=== PATIENT | male | born 2000 | race African-American/Black ===

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

== ENCOUNTER 2023-04-04 11:38 | Emergency (ER) | payer SELFPAY ==
--- OUTSIDE RECORDS SUMMARY | 2023-04-04 11:42 | XMS REPORT | Continuity of Care Document ---
:2002 Author Organization [facility] t Address [address] [facility] [address] [place] [address] Care Team Providers Name Role Phone PCP, PATIENT DOES NOT HAVE A Primary Care Physician Unavaila ble BURNHAM, SON Attending Clinician Unavailable BURNHAM, SON Attending Clinician [phone] MARTIN VALLE Attending Clinician Unavailable Doctor Unassigned, [place] Attending Clinician Unavailable Gloria Low RN Attending Clinician Unavailable Only, Ang Db Test Attending Clinician Unavailable Martin Valle MD Attending Clinician CONSTANTINO WILLINGHAM Attending Clinician Unavailable CONSTANTINO WILLINGHAM Attending Clinician [phone] NURSE, NURSE Attending Clinician Unavailable GABI MONTANEZ Attending Clinician Unavailable GABI MONTANEZ Attending Clinician [phone] Buddy Mary Attending Clinician Unavailable Piotr Madrigal MD Attending Clinician [facility], PROVIDER Attending Clinician Unavailable NICHO RICKS Attending Clinician Unavailable HECTOR BURROWS Attending Clinician [phone] NICHO RICKS Admitting Clinician Unavailable Payers Payer Name Policy Type Policy Number Effective Date Expiration Date S ource Problems This patient has no known problems. Allergies, Adverse Reactions, Alerts Allergy Allergy Status Severity Reaction(s) Onset Inactive Treating Comm ents Source Name Type Date Date Clinician No Known DA Active [facility] [place] 00:[facility]: [address] No Known DA Active [facility] 10-26 [place] 00:00: [address] NO KNOWN Drug Active Univers ALLERGIE Class ity of S [facility] Family History Family Member Diagnosis Comments Start Date Stop Date Source Mother Hypertension 2020-07-11 2020-07-11 [facility] 00:00:00 00:00:00 Father Hypertension 2020-07-11 2020-07-11 [facility] 00:00:00 00:00:00 Father Renal disease 2020-07-11 2020-07-11 [facility] 00:00:00 Father Hyperlipidemia 2020-07-11 2020-07-11 [facility] 00:[facility] 00:00:00 Social History Social Habit Start Date Stop Date Quantity Comments Source History of 2020-07-11 Current [facility] tobacco use 00:00:00 non-smoker Health-related 2020-07-11 [facility] Behavior 00:00:00 Tobacco use and 2020-07-11 : No Details [facility] exposure 00:00:00 Available Quantity Details - : No Details Available Alcohol intake [facility] to Not sure [facility] SARS-CoV-2 [facility] (event) Smoking Status Start Date Stop Date Source Unknown if ever [facility] Medications Ordered Filled Start Stop Current Ordering Indication Dosage Frequency Signature Comments Components Source Medication Medication Date Date Medication? Clinician (SIG) Name Name Margarito 2019-08- No 1{spray Q1D spray 1 [facility] Allergy 10-07 } spray by [facility] 50 00:00: 00:00 intranasal mcg/actuati 00 :00 route on nasal every day spray,suspe in each nsion nostril cetirizine 2019-08- No 1{table QD take 1 A [facility] 10 mg 10-07 t} tablet by [facility] tablet 00:00: 00:00 oral route 00 :00 every day as needed Flonase 2019-08- No 1{spray Q1D spray 1 [facility] Allergy 10-07 } spray by [facility] 50 00:00: 00:00 intranasal mcg/actuati 00 :00 route on nasal every day spray,suspe in each nsion nostril cetirizine 2019-08- No 1{table QD take 1 [facility] 10 mg 2-15 10 t} tablet by [facility]alth tablet 00:00: 00:00 oral route 00 :00 every day as needed Flonase 2019-08- No 1{spray Q1D spray 1 [facility] Allergy 2-09-01 } spray by [facility] 50 00:00: 00:00 intranasal mcg/actuati 00 :00 route on nasal every day spray,suspe in each nsion nostril cetirizine 2019-08- No 1{table QD take 1 [facility] 10 mg 2-15 10 t} tablet by [facility]alth tablet 00:00: 00:00 oral route 00 :00 every day as needed Flonase 2019-08- No 1{spray Q1D spray 1 [facility] Allergy 2-09-01 } spray by [facility] 50 00:00: 00:00 intranasal mcg/actuati 00 :00 route on nasal every day spray,suspe in each nsion nostril cetirizine 2019-08- No 1{table QD take 1 [facility] 10 mg 2-15 10 t} tablet by [facility]alth tablet 00:00: 00:00 oral route 00 :00 every day as needed Flonase 2019-08- No 1{spray Q1D spray 1 [facility] Allergy 2-15 09-01 } spray by [facility] 50 00:00: 00:00 intranasal mcg/actuati 00 :00 route on nasal every day spray,suspe in each nsion nostril cetirizine 2019-08- No 1{table QD take 1 [facility] 10 mg 2-15 10 t} tablet by [facility]alth tablet 00:00: 00:00 oral route 00 :00 every day as needed Flonase 2019-08- No 1{spray Q1D spray 1 [facility] Allergy 2-15 09-01 } spray by [facility] 50 00:00: 00:00 intranasal mcg/actuati 00 :00 route on nasal every day spray,suspe in each nsion nostril cetirizine 2019-08 1{table QD take 1 [facility] 10 mg 2-15 -10 t} tablet by [facility]alth tablet 00:00: 00:00 oral route 00 :00 every day as needed Flonase 2019-08 1{spray Q1D spray 1 [facility] Allergy 2-15 10 } spray by [facility] 50 00:00: 00:00 intranasal mcg/actuati 00 :00 route on nasal every day spray,suspe in each nsion nostril cetirizine 2019-08 No 1{table QD take 1 [facility] 10 mg 2-15 10 t} tablet by ealth tablet 00:00: 00:00 oral route 00 :00 every day as needed Bromfed DM 2019-08 No 5mL QID take 5 [facility] 2 mg-30 2-15 12-19 milliliter [facility]alth mg-10 mg/5 00:00: 00:00 by oral mL oral 00 :00 route syrup every 6 hours as needed for cough Bromfed DM 2019-08 No 5mL QID take 5 [facility] 2 mg-30 2-15 12-19 mill[facility] mg-10 mg/5 00:00: 00:00 by oral mL oral 00 :00 route syrup every 6 hours as needed for cough Bromfed DM 2019-08 No 5mL QID take 5 [facility] 2 mg-30 2-15 12-19 [facility] mg-10 mg/5 00:00: 00:00 by oral mL oral 00 :00 route syrup every 6 hours as needed for cough Bromfed DM 2019-08 No 5mL QID take 5 [facility] 2 mg-30 2-15 12-19 [facility] mg-10 mg/5 00:00: 00:00 by oral mL oral 00 :00 route syrup every 6 hours as needed for cough Bromfed DM 2019-08 No 5mL QID take 5 [facility] 2 mg-30 2-15 12-19 mill[facility] mg-10 mg/5 00:00: 00:00 by oral mL oral 00 :00 route syrup every 6 hours as needed for cough Bromfed DM 2020-1 2020- No 5mL QID take 5 [facility] 2 mg-30 2-15 12-19 [facility] mg-10 mg/5 00:00: 00:00 by oral mL oral 00 :00 route syrup every 6 hours as needed for cough Bromfed DM 2019-08 2020- No 5mL QID take 5 [facility] 2 mg-30 2-15 12-19 [facility] mg-10 mg/5 00:00: 00:00 by oral mL oral 00 :00 route syrup every 6 hours as needed for cough Flonase 2019-08 No 1{spray Q1D spray 1 [facility] Allergy 1-19 } spray by [facility] 50 00:00: intranasal mcg/actuati 00 route on nasal every day spray,suspe in each nsion nostril cetirizine 2019-08 No 1{table QD take 1 Ac [facility] 10 mg 1-19 t} tablet by [facility]alth tablet 00:00: oral route 00 every day as needed Flonase 2019-08 2020- No 1{spray Q1D spray 1 [facility] Allergy 1-19 12-15 } spray by [facility] 50 00:00: 00:00 intranasal mcg/actuati 00 :00 route on nasal every day spray,suspe in each nsion nostril cetirizine 2019-08 2020- No 1{table QD take 1 [facility] 10 mg 1-19 12-15 t} tablet by [facility] tablet 00:00: 00:00 oral route 00 :00 every day as needed Flonase 2019-08 2020- No 1{spray Q1D spray 1 [facility] Allergy 1-19 12-15 } spray by [facility] 50 00:00: 00:00 intranasal mcg/actuati 00 :00 route on nasal every day spray,suspe in each nsion nostril cetirizine 2019-08 2020- No 1{table QD take 1 [facility] 10 mg 1-19 12-15 t} tablet by [facility]alth tablet 00:00: 00:00 oral route 00 :00 every day as needed Flonase 2019-08 2020- No 1{spray Q1D spray 1 [facility] Allergy 1-19 12-15 } spray by [facility] 50 00:00: 00:00 intranasal mcg/actuati 00 :00 route on nasal every day spray,suspe in each nsion nostril cetirizine 2019-08- No 1{table QD take 1 [facility] 10 mg 1-19 12-15 t} tablet by [facility]alth tablet 00:00: 00:00 oral route 00 :00 every day as needed Flonase 2019-08- No 1{spray Q1D spray 1 [facility] Allergy 1-19 12-15 } spray by [facility] 50 00:00: 00:00 intranasal mcg/actuati 00 :00 route on nasal every day spray,suspe in each nsion nostril cetirizine 2019-08- No 1{table QD take 1 [facility] 10 mg 1-19 12-15 t} tablet by [facility]alth tablet 00:00: 00:00 oral route 00 :00 every day as needed Flonase 2019-08- No 1{spray Q1D spray 1 [facility] Allergy 1-19 12-15 } spray by [facility] 50 00:00: 00:00 intranasal mcg/actuati 00 :00 route on nasal every day spray,suspe in each nsion nostril cetirizine 2019-08- No 1{table QD take 1 [facility] 10 mg 1-19 12-15 t} tablet by [facility] tablet 00:00: 00:00 oral route 00 :00 every day as needed Flonase 2019-08 2020- No 1{spray Q1D spray 1 [facility] Allergy 1-19 12-15 } spray by [facility] 50 00:00: 00:00 intranasal mcg/actuati 00 :00 route on nasal every day spray,suspe in each nsion nostril cetirizine 2019-08 2020- No 1{table QD take 1 [facility] 10 mg 1-19 12-15 t} tablet by [facility] tablet 00:00: 00:00 oral route 00 :00 every day as needed Flonase 2019-08 2020- No 1{spray Q1D spray 1 [facility] Allergy 1-19 12-15 } spray by [facility] 50 00:00: 00:00 intranasal mcg/actuati 00 :00 route on nasal every day spray,suspe in each nsion nostril cetirizine 2019-08- No 1{table QD take 1 [facility] 10 mg 1-19 12-15 t} tablet by [facility] tablet 00:00: 00:00 oral route 00 :00 every day as needed Immunizations Ordered Filled Date Status Comments Source Immunization Name Immunization Name INFLUENZA 2020-06-23 Completed Source: New [facility] 9 Immunization 00:00:00 Record INFLUENZA 2020-06-23 Completed Source: New [facility] 9 Immunization 00:00:00 Record INFLUENZA 2020-06-23 Completed Source: New [facility] 9 Immunization 00:00:00 Record INFLUENZA 2020-06-23 Completed Source: [facility] [employer] 9 Immunization 00:00:00 Record INFLUENZA 2020-06-23 Completed Source: [facility] [employer] 9 Immunization 00:00:00 Record INFLUENZA 2020-06-23 Completed Source: New [facility] [employer] 9 Immunization 00:00:00 Record INFLUENZA 2020-06-23 Completed Source: New [facility] [employer] 9 Immunization 00:00:00 Record INFLUENZA 2020-06-23 Com[facility] 00:[facility]:00 Record Influenza Completed Note: FLU VACC 4 [facility] 2 GARRET 3 YRS PLUS IM 00:00:00 By AHUMBLE ; Source: New Immunization Record Influenza Completed Note: FLU VACC 4 [facility] 2 GARRET 3 YRS PLUS IM 00:00:00 By AHUMBLE ; Source: New Immunization Record Influenza Completed Note: FLU VACC 4 [facility] 2 GARRET 3 YRS PLUS IM 00:00:00 By AHUMBLE ; Source: New Immunization Record Influenza Completed Note: FLU VACC 4 [facility] 2 GARRET 3 YRS PLUS IM 00:00:00 By AHUMBLE ; Source: New Immunization Record Influenza Completed Note: FLU VACC 4 [facility] 2 GARRET 3 YRS PLUS IM 00:00:00 By AHUMBLE ; Source: New Immunization Record Influenza Completed Note: FLU VACC 4 [facility] 2 GARRET 3 YRS PLUS IM 00:00:00 By AHUMBLE ; Source: New Immunization Record Influenza Completed Note: FLU VACC 4 [facility] 2 GARRET 3 YRS PLUS IM 00:00:00 By AHUMBLE ; Source: New Immunization Record Influenza Completed Note: FLU VACC 4 [facility] 2 GARRET 3 YRS PLUS IM 00:00:00 By AHUMBLE ; Source: New Immunization Record Vital Signs Vital Name Observation Time Observation Value Comments Source Body height 2020-09-12 10:29:00 180.97 cm [facility] Patient Body Weight 2020-09-12 10:29:00 72.212 kg [facility] Systolic 2020-09-12 10:29:00 125 mm[Hg] [facility] Diastolic 2020-09-12 10:29:00 76 mm[Hg] [facility] Heart Beat 2020-09-12 10:29:00 63 /min [facility] Body Temperature 2020-09-12 10:29:00 36.44 Jewell [facility] Respiratory Rate 2020-09-12 10:29:00 18 /min [facility] Body mass index 2020-09-12 10:29:00 22.05 kg/m2 [facility] Body mass index (BMI) 2020-09-12 10:29:00 50 % [facility] [Percentile] Per age and gender O2 % [facility] Oximetry 2020-09-12 10:29:00 98 % [facility] Body height 2020-08-06 11:20:00 181.61 cm [facility] Patient Body Weight 2020-08-06 11:20:00 72.484 kg [facility] Systolic 2020-08-06 11:20:00 144 mm[Hg] [facility] Diastolic 2020-08-06 11:20:00 86 mm[Hg] [facility] Heart Beat 2020-08-06 11:20:00 88 /min [facility] Body Temperature 2020-08-06 11:20:00 38.33 Jewell [facility] Respiratory Rate 2020-08-06 11:20:00 18 /min [facility] Body mass index 2020-08-06 11:20:00 21.98 kg/m2 [facility] Body mass index (BMI) 2020-08-06 11:20:00 50 % [facility] [Percentile] Per age and gender O2 % BldC Oximetry 2020-08-06 11:20:00 98 % [facility] Body height 2020-07-11 14:20:00 180.00 cm [facility] Patient Body Weight 2020-07-11 14:20:00 72.484 kg [facility] Systolic 2020-07-11 14:20:00 119 mm[Hg] [facility] Diastolic 2020-07-11 14:20:00 65 mm[Hg] [facility] Heart Beat 2020-07-11 14:20:00 62 /min [facility] Body Temperature 2020-07-11 14:20:00 36.94 Jewell [facility] Respiratory Rate 2020-07-11 14:20:00 16 /min [facility] Body mass index 2020-07-11 14:20:00 22.37 kg/m2 [facility] Body mass index (BMI) 2020-07-11 14:20:00 56 % [facility] [Percentile] Per age and gender Body height 2017-10-22 15:56:00 71.00 [in_us] [facility] Patient Body Weight 2017-10-22 15:56:00 139.12 [lb_av] [facility] Systolic 2017-10-22 15:56:00 112 mm[Hg] [facility] Diastolic 2017-10-22 15:56:00 68 mm[Hg] [facility] Heart Beat 2017-10-22 15:56:00 72 /min [facility] Body Temperature 2017-10-22 15:56:00 97.00 [degF] [facility] Respiratory Rate 2017-10-22 15:56:00 20 /min [facility] Body mass index 2017-10-22 15:56:00 19.40 kg/m2 [facility] Body height 2017-08-10 14:56:00 71.00 [in_us] [facility] Patient Body Weight 2017-08-10 14:56:00 136.20 [lb_av] [facility] Systolic 2017-08-10 14:56:00 118 mm[Hg] [facility] Diastolic 2017-08-10 14:56:00 68 mm[Hg] [facility] Heart Beat 2017-08-10 14:56:00 84 /min [facility] Body Temperature 2017-08-10 14:56:00 100.10 [degF] [facility] Respiratory Rate 2017-08-10 14:56:00 22 /min [facility] Body mass index 2017-08-10 14:56:00 [facility]00 [facility] 2017-01-21 14:44:00 97.50 [degF] [facility] Respiratory Rate 2017-01-21 14:44:00 22 /min [facility] Body mass index 2017-01-21 14:44:00 19.50 kg[facility] Body height 2017-01-21 14:44:00 68.25 [in_us] [facility] Weight 2017-01-21 14:44:00 129.00 [lb_av] [facility] Systolic 2017-01-21 14:44:00 120 mm[Hg] [facility] Diastolic 2017-01-21 14:44:00 73 mm[Hg] [facility] Heart Beat 2017-01-21 14:44:00 68 /min [facility] Body height 2016-11-24 10:24:00 66.00 [in_us] [facility] Body Weight 2016-11-24 10:24:00 129.12 [lb_av] [facility] Systolic 2016-11-24 10:24:00 123 mm[Hg] [facility] Diastolic 2016-11-24 10:24:00 72 mm[Hg] [facility] Heart Beat 2016-11-24 10:24:00 66 /min [facility] Body Temperature 2016-11-24 10:24:00 96.90 [degF] [facility] Respiratory Rate 2016-11-24 10:24:00 20 /min [facility] Body mass index 2016-11-24 10:24:00 20.80 kg/m2 [facility] Body height 2016-01-14 13:08:00 66.00 [in_us] [facility] Patient Body Weight 2016-01-14 13:08:00 115.60 [lb_av] [facility] Systolic 2016-01-14 13:08:00 125 mm[Hg] [facility] Diastolic 2016-01-14 13:08:00 69 mm[Hg] [facility] Heart Beat 2016-01-14 13:08:00 69 /min [facility] Body Temperature 2016-01-14 13:08:00 97.50 [degF] [facility] Respiratory Rate 2016-01-14 13:08:00 20 /min [facility] Body mass index 2016-01-14 13:08:00 18.70 kg/m2 [facility] Procedures Procedure Date / Time Performing Clinician Source Performed ASSIGNMENT OF 2022-03-03 22:18:53 Doctor Unassigned, No [facility] BENEFITS Name Medical Branch ASSIGNMENT OF 2021-05-18 23:23:03 Doctor Rhonda Berg [facility] OFFICE/OUTPATIENT 2020-09-12 00:00:00 [facility] VISIT EST Infectious agent 2020-09-04 00:00:00 [facility] detection by nucleic acid (DNA or STREP A ASSAY W/OPTIC 2020-08-06 00:00:00 [facility] INFLUENZA ASSAY 2020-08-06 00:00:00 [facility] W/OPTIC OFFICE/OUTPATIENT 2020-08-06 00:00:00 [facility] VISIT EST IM ADMIN 1ST/ONLY 2020-07-11 00:00:00 [facility] COMPONENT LAIV4 VACCINE 2020-07-11 00:00:00 [facility] INTRANASAL OFFICE/OUTPATIENT 2020-07-11 00:00:00 [facility] VISIT EST Encounters Start End Encounter Admission Attending Care Care Encounter Source Date/Time Date/Time Type Type Clinicians Facility Department ID 2022-05-21 Outpatient CHW W [id number] [facility] 14:00:27 0916 [facility] 2022-04-13 2022-04-13 Outpatient LUCERO BURNHAM [facility] [id number] Access 16:31[facility] 2022-04-13 2022-04-13 Outpatient LUCERO BURNHAM [facility] [id number] Access 16:31:00 16:31:00 [id number] [facility] [id number] 2022-03-03 2022-03-[address] [facility] [id number] Univers 17:00:00 17:00:00 MARTIN prather [facility] 2022-03-03 2022-03-03 Orders Doctor RALPH [id number] Univers 00:00:00 00:00:00 Only RACHEAL Berg 350.1.13.10 ity of [place] [facility] 4.2.7.2.686 Carl as [id number] [address] 2021-05-19 2021-05-19 Letter LOREE Low [id number] [id number] Univers 00:00:00 00:00:00 (Out) Gloria Win RACHEAL 350.1.13.10 it y of HOSPITAL 4.2.7.2.686 Carl as [id number] [facility] 019 Branch 2021-05-18 2021-05-18 Laboratory Only, Ang Db Test [facility] 1.2.8 40.114 [id number] Univers 18:21:43 18:36:43 Only Martin Valle [facility] 350.1.13.10 ity of [place] 4.2.7.2.686 Carl as Alpesh?Blea [id number] [address] Medical Office Building 2021-05-18 2021-05-[address] [facility] [id number] Univers 18:30:00 18:30:00 MARTIN ity [facility] 2021-05-18 2021-05-18 Orders Doctor LOREE [id number] Univers 00:00:00 00:00:00 Only Unassigned, RACHEAL 350.1.13.10 ity of [place] [facility] 4.2.7.2.686 Carl as [id number] [facility] 009 Branch 2021-05-18 2021-05-18 Letter Doctor LOREE [id number] Univers 00:00:00 00:00:00 (Out) Unassigned, RACHEAL 350.1.13.10 ity of [place] [facility] 4.2.7.2.686 Carl as [id number] [facility] 044 Branch 2020-10-26 2020-10-26 Inpatient HCAWU H[facility] [id number] [facility] 19:05:28 19:05:28 04 [facility] 2020-09-12 2020-09-12 Outpatient MAULIK [facility] [id number] Access 10:30:00 10:30:00 CONSTANTINO [facility] 2020-09-12 2020-09-12 OFFICE/OUT MAULIK [facility] [id number] Access 10:30:00 10:30:00 PATIENT CONSTANITNO Flores [id number] [facility] VISIT EST [id number] 2020-09-04 2020-09-04 Outpatient MAULIK, [facility] [id number] [facility] 10:00:00 10:00:00 [facility] 2020-09-04 2020-09-04 Outpatient MAULIK, [facility] [id number] [facility] 10:00:00 10:00:00 CONSTANTINO Flores [id number] [facility] [id number] 2020-09-04 2020-09-04 Outpatient MAULIK, [facility] [id number] [facility] 00:00:00 00:00:00 CONSTANTINO [facility] 2020-09-04 2020-09-04 Outpatient MAULIK, [facility] [id number] [facility] 00:00:00 00:00:00 CONSTANTINO Flores [id number] [facility] [id number] 2020-08-12 2020-08-12 Outpatient NURSE, [facility] [id number] [facility] 09:22:00 09:22:00 NURSE [facility] 2020-08-12 2020-08-12 Outpatient NURSE, [facility] [id number] [facility] 09:22:00 09:22:00 NURSE [id number] ealt [id number] 2020-08-06 2020-08-06 Outpatient LISSETH, [facility] [id number] [facility] 13:56:00 13:56:00 GABI george 2020-08-06 2020-08-06 Outpatient LISSETH, [facility] [id number] [facility] 13:56:00 13:56:00 GABI Cooper [id number] ealt [id number] 2020-08-06 2020-08-06 Outpatient LISSETH [facility] [id number] [facility] 11:00:00 11:00:00 [facility] 2020-08-06 2020-08-06 OFFICE/OUT LISSETH [facility] [id number] [facility] 11:00:00 11:00:00 PATIENT GABI Cooper [id number] ealt VISIT EST [id number] 2020-07-11 2020-07-11 Outpatient LISSETH [facility] [id number] [facility] 13:45:00 13:45:00 GABI [facility] 2020-07-11 2020-07-11 OFFICE/OUT LISSETH [facility] [id number] [facility] 13:45:00 13:45:00 PATIENT GABI Cooper [id number] [facility] VISIT EST [id number] 2020-05-16 2020-05-16 Outpatient ISAAC Mary [facility] [id number] [facility] 17:51:00 17:51:00 [facility] 2020-05-08 2020-05-08 Outpatient ISAAC Mary [facility] [id number] [facility] 00:00:00 00:00:00 [facility] 2019-03-22 2019-03-22 [facility] [id number] 15:07:03 23:59:00 Encounter Piotr LP33.TV 350.1.13.10 Surgical 4.2.7.2.686 Specialti [id number] es [address] [place] 2019-03-22 2019-03-22 Office [facility] [id number] 14:59:46 15:14:46 Visit [facility]nexus 350.1.13.10 Surgical 4.2.7.2.686 Specialti [id number] es 198 [place] 2018-02-08 2018-02-08 [facility] [id number] [facility] 00:00:00 00:00:00 CONSTANTINO Flores [id number] ealt [id number] 2018-01-03 2018-01-03 Outpatient [facility] [id number] [facility] 00:00:00 00:00:00 H, PROVIDER magi pabon 2018-01-03 2018-01-03 Outpatient [facility] [id number] [facility] 00:00:00 00:00:00 H, PROVIDER [id number] [id number] 2017-10-22 2017-10-22 Outpatient WILLINGHAM, [facility] [id number] [facility] 16:23:00 16:23:00 CONSTANTINO Flores [id number] [facility] [id number] 2017-10-22 2017-10-22 Outpatient [facility] [id number] [facility] 00:00:00 00:00:00 H, PROVIDER magi [facility] 2017-10-22 2017-10-22 Outpatient [facility] [id number] [facility] 00:00:00 00:00:00 H, PROVIDER [id number] 2017-08-10 2017-08-10 Outpatient [facility] [id number] [facility] 00:00:00 00:00:00 H, PROVIDER magi pabon 2017-08-10 2017-08-10 Outpatient [facility] [id number] [facility] 00:00:00 00:00:00 H, PROVIDER [id number] [id number] [phone] [id number] 2017-08-10 2017-08-10 Outpatient [place], [facility] 7qc4t5x8-9f bd6 [id number] [facility] 00:00:00 00:00:00 CONSTANTINO Flores e2-8dt0-64a q51-0917 -a ealth 0-hf8hon276 530-o5d873 0f4 ei8151 2017-02-02 2017-02-02 Emergency E MILLICENT, [facility] [id number] 17:21:00 [facility] 2017-01-22 2017-01-22 Outpatient [place], HC 4wh2p5i8-3o 5e2 [id number] [facility] 00:00:00 00:00:00 CONSTANTINO Flores e2-3pr0-75h 757-47ae -9 ealth 0-uf0lpf669 [id number] 0f4 c15a0e 2017-01-22 2017-01-22 Outpatient STORMY, HC 1rs1b2m4-9w 25 6eqtw2-6 [facility] 00:00:00 00:00:00 HECTOR Cagle e2-2kn8-65p 91b-4d1e -a ealth 0-mz7eic175 [id number] 0f4 27d10e 2017-01-21 2017-01-21 Outpatient STORMY, HC 5zg0d9w3-6d 51 [id number] [facility] 14:44:00 14:44:00 HECTOR D e2-3jr6-73y 9bd-40f5 -8 ealth 0-tz4tau842 156-22d95d 0f4 [id number] 2017-01-21 2017-01-21 [facility] 0238 [facility] 00:00:00 00:00:00 H, PROVIDER ea lth 2017-01-21 2017-01-21 Outpatient [facility] 3mm5t4v4-6k 2flu0bw8-9 [facility] 00:00:00 00:00:00 H, PROVIDER e2-1ok1-56c b19-42 16-a ealth 0-xy7baz034 a28-59gosm 0f4 2cf0bd 2016-11-24 2016-11-24 Outpatient MAULIK, [facility] 5lw3p8u4-8n 16b 1n4xs-k [facility] 10:24:00 10:24:00 CONSTANTINO Flores e2-9tq8-53d 2da-4f23 -a ealth 0-vz2cxg070 ad0-8678a5 0f4 bd91fd 2016-11-24 2016-11-24 Outpatient [facility] 145 0260 [facility] 00:00:00 00:00:00 H, PROVIDER magi [facility] 2016-11-24 2016-11-24 Outpatient [facility] 7ic6w4l0-4v 3ynn2m2r-8 [facility] 00:00:00 00:00:00 H, PROVIDER e2-4ie4-29p 974-47 d5-9 ealth 0-rl2ome118 824-ee41d8 0f4 d38df1 2016-01-17 2016-01-17 Outpatient MAULIK, HC 9jp4h5p7-0g 887 [id number] [facility] 00:00:00 00:00:00 CONSTANTINO Flores e2-3ao8-93n 49d-4ac0 -a ealt 0-cg5ajt879 [id number] 0f4 [id number] 2016-01-14 2016-01-14 Outpatient MAULIK, HC 3dm3p9w1-5z ce2 945d0-5 [facility] 13:08:00 13:08:00 CONSTANTINO Flores e2-5rd4-18j a53-2s31 -a ealth 0-fk0mvx029 73a-t9r774 0f4 80724g 2016-01-14 2016-01-14 Outpatient [facility] 145 0251 [facility] 00:00:00 00:00:00 H, PROVIDER magi melo 2016-01-14 2016-01-14 Outpatient [facility] 4dc4y9z1-4j [id number] [facility] 00:00:00 00:00:00 H, PROVIDER e2-3vf9-25i f5f-47 82-b ealth 0-oa8jyd040 [id number]-[id number] 0f4 [id number] 3599-07-08 2015-02-27 Outpatient [facility] 145 0264 [facility] 00:00:00 00:00:00 H, PROVIDER magi melo 2015-02-27 2015-02-27 Outpatient [facility] 1zq5b4l7-7h [id number]-4 [facility] 00:00:00 00:00:00 H, PROVIDER desiree4ys7-53o c5f-46 f3-b [facility] 0-kc0bfe390 16f-f4d34b 0f4 3dd17f 2014-11-27 2014-11-27 Outpatient [facility] 145 0245 [facility] 00:00:00 00:00:00 H, PROVIDER magi melo 2014-11-27 2014-11-27 Outpatient [facility] 8sk9q0p3-5r [id number]-t [facility] 00:00:00 00:00:00 H, PROVIDER desiree5zd1-62l 364-42 39-a [facility] 0-ii4evf739 b74-441m14 0f4 a6f4d0 2014-10-02 2014-10-02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
--- NOTE | 2023-04-04 13:17 | EDPHYS ---
Physician Documentation [facility] Name: Marlon Egan Age: 22 yrs Sex: Male : 2000 Arrival Date: 04/04/2023 Time: 11:38 Bed IW1 Private MD: ED Physician Lenny Granger HPI: 04/04 11:57 This 22 yrs old Black Male presents to ER via Ambulatory with complaints of Sore Throat.kb 11:57 The patient presents with sore throat. The patient describes throat pain as constant. kb Onset: The symptoms/episode began/occurred 2 day(s) ago. Severity of symptoms: At their worst the symptoms were moderate, in the emergency department the symptoms are unchanged. Modifying factors: The symptoms are alleviated by nothing, the symptoms are aggravated by swallowing, Patient's oral intake status: good. Associated signs and symptoms: Pertinent positives: cough, rhinorrhea, Sore throat. The patient has not experienced similar symptoms in the past. The patient has not recently seen a physician. Historical: - Allergies: 11:55 No Known Allergies; ss - Home Meds: 11:55 None [Active]; ss - PMHx: 11:55 None; ss - PSHx: 11:55 None; ss - Immunization history:: Client reports receiving the 2nd dose of the Covid vaccine. - Social history:: Smoking status: Patient denies any tobacco usage or history of. ROS: 11:57 Constitutional: Negative for fever, chills, and weight loss. kb 11:57 ENT: Positive for rhinorrhea, sinus congestion, sore throat. 11:57 Respiratory: Positive for cough. 11:57 All other systems are negative. Exam: 11:57 Constitutional: This is a well developed, well nourished patient who is awake, alert, kb and in no acute distress. Head/Face: Normocephalic, atraumatic. Cardiovascular: Regular rate and rhythm with a normal S1 and S2. No gallops, murmurs, or rubs. No pulse deficits. Respiratory: Respirations even and unlabored. No increased work of breathing. Talking in full sentences Skin: Warm, dry with normal turgor. Normal color. MS/ Extremity: Pulses equal, no cyanosis. Neurovascular intact. Full, normal range of motion. Neuro: Awake and alert, GCS 15, oriented to person, place, time, and situation. Moves all extremities. Normal gait. 11:57 ENT: External ear(s): are unremarkable, Ear canal(s): are normal, TM's: are normal, Nose: is normal, Mouth: is normal, Posterior pharynx: Airway: normal, no evidence of obstruction, Tonsils: bilaterally enlarged, with erythema, with exudate, swelling, that is mild, erythema, that is moderate, exudate, that is mild. Vital Signs: 11:51 Pulse 79; Resp 16; Temp 99(TE); Pulse Ox 100% on R/A; Weight 72.57 kg; Height 6 ft. 2 ss in. ; Pain 9/10; 11:51 Body Mass Index 20.54 (72.57 kg, 187.96 cm) ss 11:51 Pain Scale: Adult ss MDM: 11:51 Patient medically screened. kb 11:57 Differential diagnosis: strep, pharyngitis, covid, flu, uri. Data reviewed: vital kb signs, nurses notes. 13:17 Counseling: I had a detailed discussion with the patient and/or guardian regarding: the kb historical points, exam findings, and any diagnostic results supporting the discharge/admit diagnosis, lab results, the need for outpatient follow up, a family practitioner, to return to the emergency department if symptoms worsen or persist or if there are any questions or concerns that arise at home. 04/04 11:53 Order name: Flu; Complete Time: 12:47 kb 04/04 11:53 Order name: COVID-19 SARS RT PCR; Complete Time: 12:47 04/04 11:53 Order name: Strep 04/04 12:30 Order name: Throat Culture EDMS Administered Medications: No medications were administered Disposition Summary: 04/04/23 13:16 Discharge Ordered Location: Home kb Condition: Stable kb Diagnosis - Acute tonsillitis, unspecified kb Followup: kb - With: Emergency Department - When: As needed - Reason: Worsening of condition Followup: kb - With: Private Physician - When: 2 - 3 days - Reason: Recheck today's complaints, Continuance of care, Re-evaluation by your physician Discharge Instructions: - Discharge Summary Sheet kb - Tonsillitis, [id number] kb Forms: - Medication Reconciliation Form kb - Thank You Letter kb - Antibiotic Education kb - Prescription Opioid Use kb - Patient Portal Instructions kb - Leadership Thank You Letter kb Prescriptions: - Amoxicillin 875 mg Oral Tablet - take 1 tablet by ORAL route every 12 hours for 10 days; 20 tablet; Refills: 0, kb Product Selection Permitted Signatures: Dispatcher [employer] Maru Chavez, STAFF SONOGRAPHER-C STAFF SONOGRAPHER-Beverly Stiles, RN RN ss
--- NOTE | 2023-04-04 13:17 | ER ---
Nurse's Notes [facility] Name: Marlon Egan Age: 22 yrs Sex: Male : 2000 Arrival Date: 04/04/2023 Time: 11:38 Bed IW1 Private MD: Diagnosis: Acute tonsillitis, unspecified Presentation: 04/04 11:51 Chief complaint: Patient states: sore throat and white patches that began 2 days ago. ss Coronavirus screen: Client denies travel out of the [place] in the last 14 days. Ebola Screen: Patient denies exposure to infectious person. Patient denies travel to an Ebola-affected area in the 21 days before illness onset. Initial Sepsis Screen: Does the patient meet any 2 criteria? No. Patient's initial sepsis screen is negative. Does the patient have a suspected source of infection? No. Patient's initial sepsis screen is negative. Risk Assessment: Do you want to hurt yourself or someone else? Patient reports no desire to harm self or others. Onset of symptoms was April 03, 2023. 11:51 Method Of Arrival: Ambulatory ss 11:51 Acuity: STEVIE 4 ss Historical: - Allergies: 11:55 No Known Allergies; ss - Home Meds: 11:55 None [Active]; ss - PMHx: 11:55 None; ss - PSHx: 11:55 None; ss - Immunization history:: Client reports receiving the 2nd dose of the Covid vaccine. - Social history:: Smoking status: Patient denies any tobacco usage or history of. Screenin:30 [facility] ED Fall Risk Assessment (Adult) History of falling in the last 3 months, ss including since admission No falls in past 3 months (0 pts). Abuse screen: Denies threats or abuse. Denies injuries from another. Nutritional screening: No deficits noted. Tuberculosis screening: Never had TB. Assessment: 13:30 Reassessment: Patient appears in no apparent distress at this time. Patient and/or ss family updated on plan of care and expected duration. Pain level reassessed. Vital Signs: 11:51 Pulse 79; Resp 16; Temp 99(TE); Pulse Ox 100% on R/A; Weight 72.57 kg; Height 6 ft. 2 ss in. ; Pain 9/10; 11:51 Body Mass Index 20.54 (72.57 kg, 187.96 cm) ss 11:51 Pain Scale: Adult ss ED Course: 11:39 Patient arrived in ED. rg4 11:49 Maru Parker FNP-C is [facility]. kb 11:49 Lenny Granger MD is Attending Physician. kb 11:53 Triage completed. ss 11:55 Arm band placed on left wrist. ss 12:26 Beverly Carson, RN is Primary Nurse. ss 13:30 Patient has correct armband on for positive identification. ss 13:30 No provider procedures requiring assistance completed. Patient did not have IV access ss during this emergency room visit. Administered Medications: No medications were administered Medication: 13:30 VIS not applicable for this client. ss Outcome: 13:16 Discharge ordered by . kb 13:30 Discharged to home ambulatory. ss 13:30 Condition: good 13:30 Discharge instructions given to patient, family, Instructed on discharge instructions, follow up and referral plans. medication usage, Demonstrated understanding of instructions, follow-up care, medications, Prescriptions given X 1. 13:32 Patient left the ED. ss Signatures: Maru Parker FNP-C BOOK CRITIC-Ckb Beverly Carson, RN RN hannah Richmond Ilda rg4
[2023-04-04 13:36] VITALS: TEMP 99; O2SAT 100
== END 2023-04-04 13:32 | disposition home or self-care (01) ==
LOC: ER 11:38
DX: J03.90 Acute tonsillitis, unspecified (principal); Z20.822 Contact with and (suspected) exposure to COVID-19
CPT/HCPCS: 87070; 87081; 87635; 87804; 99283

== ENCOUNTER 2025-04-12 18:27 | Emergency (ER) | payer SELFPAY ==
--- OUTSIDE RECORDS SUMMARY | 2025-04-12 18:31 | XMS REPORT | Continuity of Care Document ---
Author Name Unknown Address [address] [facility] [address] [place] [address] [facility] Address [address] [facility] [place] [address] Care Team Providers Care Manager Acquisition Name Role Phone PCP, PATIENT DOES NOT HAVE A Primary Care Physic mavis Unavailable BRUNHAM, SON Attending Clinician Unavailable BURNHAM, SON Attending Clinician [phone] MARTIN VALLE Attending Clinician Unavailable Doctor Unassigned, Yeager Attending Clinician U evelia Low RN, Gloria Win Attending Clinician Unavailab le Only, Ang Db Test Attending Clinician UnavailMartin Spencer MD Attending Clinician [phone] CONSTANTINO WILLINGHAM Attending Clinician UnavailCONSTANTINO Ortez Attending Clinician [phone] NURSE, NURSE Attending Clinician Unavailable GABI MONTANEZ Attending Clinician Unavaila GABI Otero Attending Clinician [phone] Buddy Mary Attending Clinician Unavailable Rohan PEREZ, Piotr Styles Attending Clinician [phone] [facility], PROVIDER Attending Clinician Unava ilable NICHO RICKS Attending Clinician Unavailable HECTOR BURROWS Attending Clinician [phone] NICHO RICKS Admitting Clinician Unavailable Payers Payer Name Policy Type Policy Number Effective Date Expirati on Date Source Allergies, Adverse Reactions, Alerts Allergy Name Allergy Type Status Severity Reaction(s) Onset Date Inactive Date Treating Clinician Comments Source No Known Allergie s DA Active U 10-26 00:00: 00 [facility] No Known Allergie s DA Active U 10-26 00:00: 00 [facility] NO KNOWN ALLERGIE S Drug Class Active [facility] Family History Family Member Diagnosis Comments Start Date Stop Date Sourc e Mother Hypertension 2020-07-11 00:00:00 2020-07-11 00:00:00 [facility] Father Hypertension 2020-07-11 00:00:00 2020-07-11 00:00:00 [facility] Father Renal disease 2020-07-11 00:00:00 2020-07-11 00:00:00 [facility] Father Hyperlipidemia 2020-07-11 00:00:00 2020-07-11 00:00:00 [facility] Social History Social Habit Start Date Stop Date Quantity Comments Source History of tobacco use 2020-07-11 00:00:00 Current non-smoker [facility] Health-related Behavior 2020-07-11 00:00:00 [facility] Tobacco use and exposure 2020-07-11 00:00:00 : No Details Available Quantity Details - : No Details Available [facility] Alcohol intake [facility] Sex Assigned At Male [facility] Exposure to SARS-CoV-2 (event) Not sure [facility] Smoking Status Start Date Stop Date Source Unknown if ever smoked [facility] Never smoker [facility] Medications Ordered Medication Name Filled Medication Name Start Date Stop Date Current Medication? Ordering Clinician Indication Dosage Frequency Signature (SIG) Comments Components Source Flonase Allergy Relief 50 mcg/actuati on nasal spray,suspe nsion 2019-08 00:00: 00 09-01 00:00 :00 No 1{spray } Q1D spray 1 spray by intranasal route every day in each nostril [facility] cetirizine 10 mg tablet 2019-08 00:00: 00 09-01 00:00 :00 No 1{table t} QD take 1 tablet by oral route every day as needed [facility] Bromfed DM 2 mg-30 mg-10 mg/5 mL oral syrup 2019-08 00:00: 00 08-10 00:00 :00 No 5mL QID take 5 milliliter by oral route every 6 hours as needed for cough [facility]alt Flonase Allergy Relief 50 mcg/actuati on nasal spray,suspe nsion 2019-08 00:00: 00 08-06 00:00 :00 No 1{spray } Q1D spray 1 spray by intranasal route every day in each nostril [facility] cetirizine 10 mg tablet 2019-08 00:00: 00 08-06 00:00 :00 No 1{table t} QD take 1 tablet by oral route every day as needed [facility] Vital Signs Vital Name Observation Time Observation Value Comments S ource Body height 2020-09-12 10:29:00 180.97 cm Acce [facility] Patient Body Weight 2020-09-12 10:29:00 72.212 kg [facility] Systolic 2020-09-12 10:29:00 125 mm[Hg] [facility] Diastolic 2020-09-12 10:29:00 76 mm[Hg] [facility] Heart Beat 2020-09-12 10:29:00 63 /min [facility] Body Temperature 2020-09-12 10:29:00 36.44 Jewell [facility] Respiratory Rate 2020-09-12 10:29:00 18 /min [facility] Body mass index 2020-09-12 10:29:00 22.05 kg/m2 [facility] Body mass index (BMI) [Percentile] Per age and gender 2020-09-12 10:29:00 50 % [facility] O2 % [facility] Oximetry 2020-09-12 10:29:00 98 % [facility] Body height 2020-08-06 11:20:00 181.61 cm [facility] Patient Body Weight 2020-08-06 11:20:00 72.484 kg [facility] Systolic 2020-08-06 11:20:00 144 mm[Hg] [facility] Diastolic 2020-08-06 11:20:00 86 mm[Hg] [facility] Heart Beat 2020-08-06 11:20:00 88 [facility] Temperature 2020-08-06 11:20:00 38.33 Jewell [facility] Respiratory Rate 2020-08-06 11:20:00 18 /min [facility] Body mass index 2020-08-06 11:20:00 21.98 kg/m2 [facility] Body mass index (BMI) [Percentile] Per age and gender 2020-08-06 11:20:00 50 % [facility] O2 % [facility] Oximetry 2020-08-06 11:20:00 98 % [facility] Body height 2020-07-11 14:20:00 180.00 cm Acce [facility] Patient Body Weight 2020-07-11 14:20:00 72.484 kg [facility] Systolic 2020-07-11 14:20:00 119 mm[Hg] [facility] Diastolic 2020-07-11 14:20:00 65 mm[Hg] [facility] Heart Beat 2020-07-11 14:20:00 62 /min [facility] Body Temperature 2020-07-11 14:20:00 36.94 Jewell [facility] Respiratory Rate 2020-07-11 14:20:00 16 /min [facility] Body mass index 2020-07-11 14:20:00 22.37 kg/m2 [facility] Body mass index (BMI) [Percentile] Per age and gender 2020-07-11 14:20:00 56 % [facility] Body height 2017-10-22 15:56:00 71.00 [in_us] [facility] Body Weight 2017-10-22 15:56:00 139.12 [lb_av] [facility] Systolic 2017-10-22 15:56:00 112 mm[Hg] [facility] Diastolic 2017-10-22 15:56:00 68 mm[Hg] [facility] Heart Beat 2017-10-22 15:56:00 72 /min [facility] Body Temperature 2017-10-22 15:56:00 97.00 [degF] [facility] Respiratory Rate 2017-10-22 15:56:00 20 /min [facility] Body mass index 2017-10-22 15:56:00 19.40 kg/m2 [facility] Body height 2017-08-10 14:56:00 71.00 [in_us] [facility] Body Weight 2017-08-10 14:56:00 136.20 [lb_av] [facility] Systolic 2017-08-10 14:56:00 118 mm[Hg] [facility] Diastolic 2017-08-10 14:56:00 68 mm[Hg] [facility] Heart Beat 2017-08-10 14:56:00 84 /min [facility] Body Temperature 2017-08-10 14:56:00 100.10 [degF] [facility] Respiratory Rate 2017-08-10 14:56:00 22 /min [facility] Body mass index 2017-08-10 14:56:00 19.00 kg/m2 [facility] Body Temperature 2017-01-21 14:44:00 97.50 [degF] [facility] Respiratory Rate 2017-01-21 14:44:00 22 /min [facility] Body mass index 2017-01-21 14:44:00 19.50 kg/m2 [facility] Body height 2017-01-21 14:44:00 68.25 [in_us] [facility] 2017-01-21 14:44:00 129.00 [lb_av] [facility] Systolic 2017-01-21 14:44:00 120 mm[Hg] [facility] Diastolic 2017-01-21 14:44:00 73 mm[Hg] [facility] Heart Beat 2017-01-21 14:44:00 68 /min [facility] Body height 2016-11-24 10:24:00 66.00 [in_us] [facility] Weight 2016-11-24 10:24:00 129.12 [lb_av] [facility] Systolic 2016-11-24 10:24:00 123 mm[Hg] [facility] Diastolic 2016-11-24 10:24:00 72 mm[Hg] [facility] Heart Beat 2016-11-24 10:24:00 66 /min [facility] Body Temperature 2016-11-24 10:24:00 96.90 [degF] [facility] Respiratory Rate 2016-11-24 10:24:00 20 /min [facility] Body mass index 2016-11-24 10:24:00 20.80 kg/m2 [facility] Body height 2016-01-14 13:08:00 66.00 [in_us] [facility] Body Weight 2016-01-14 13:08:00 115.60 [lb_av] [facility] Systolic 2016-01-14 13:08:00 125 mm[Hg] [facility] Diastolic 2016-01-14 13:08:00 69 mm[Hg] [facility] Heart Beat 2016-01-14 13:08:00 69 /min [facility] Body Temperature 2016-01-14 13:08:00 97.50 [degF] [facility] Respiratory Rate 2016-01-14 13:08:00 20 /min [facility] Body mass index 2016-01-14 13:08:00 18.70 kg/m2 [facility] Procedures Procedure Date / Time Performed Performing Clinician Source ASSIGNMENT OF BENEFITS 2022-03-03 22:18:53 Doctor Unassigned, Yeager [facility] ASSIGNMENT OF BENEFITS 2021-05-18 23:23:03 Doctor Unassigned, Yeager [facility] OFFICE/OUTPATIENT VISIT EST 2020-09-12 00:00:00 [facility] Infectious agent detection by nucleic acid (DNA or 2020-09-04 00:00:00 [facility] STREP A ASSAY W/OPTIC 2020-08-06 00:00:00 [facility] INFLUENZA ASSAY W/OPTIC 2020-08-06 00:00:00 [facility] OFFICE/OUTPATIENT VISIT EST 2020-08-06 00:00:00 [facility] IM ADMIN 1ST/ONLY COMPONENT 2020-07-11 00:00:00 [facility] LAIV4 VACCINE INTRANASAL 2020-07-11 00:00:00 [facility] OFFICE/OUTPATIENT VISIT EST 2020-07-11 00:00:00 [facility] Encounters Start Date/Time End Date/Time Encounter Type Admission Type Attending Clinicians Care Facility Care Department Encounter ID Source 2022-05-21 14:00:27 Outpatient CHW W [id number] [facility] 2022-04-13 16:31:00 2022-04-13 16:31:00 Outpatient LUCERO BURNHAM [facility] [id number] [facility] 2022-04-13 16:31:00 2022-04-13 16:31:00 Outpatient LUCERO BURNHAM [facility] [id number] [facility] 2022-03-03 17:00:00 2022-03-03 17:00:00 Outpatient MARTIN PEREZ [facility] [id number] [facility] 2022-03-03 00:00:00 2022-03-03 00:00:00 Orders Only Doctor Unassigned, Yeager [facility] [id number] [facility] 2021-05-19 00:00:00 2021-05-19 00:00:00 Letter (Out) Devante Gloria Win [facility] [id number] [facility] 2021-05-18 18:21:43 2021-05-18 18:36:43 Laboratory Only Only, Ang Booker [facility] [id number] [facility] 2021-05-18 18:30:00 2021-05-18 18:30:00 Outpatient MARTIN PEREZ [facility] [id number] [facility] 2021-05-18 00:00:00 2021-05-18 00:00:00 Orders Only Doctor Unassigned, Yeager [facility] [id number] 4.2.7.2.[id number] [facility] 2021-05-18 00:00:00 2021-05-18 00:00:00 Letter (Out) Doctor Unassigned, Yeager [facility] [id number] [facility] 2020-10-26 19:05:28 2020-10-26 19:05:28 Inpatient HCA[facility]U H[facility] [id number] [facility] 2020-09-12 10:30:00 2020-09-12 10:30:00 Outpatient CONSTANTINO WILLINGHAM [facility] [id number] [facility] 2020-09-12 10:30:00 2020-09-12 10:30:00 OFFICE/OUT PATIENT VISIT EST CONSTANTINO WILLINGHAM [facility] [id number] [facility] 2020-09-04 10:00:00 2020-09-04 10:00:00 Outpatient CONSTANTINO WILLINGHAM [facility] [id number] [facility] 2020-09-04 10:00:00 2020-09-04 10:00:00 Outpatient CONSTANTINO WILLINGHAM [facility] [id number] [facility] 2020-09-04 00:00:00 2020-09-04 00:00:00 Outpatient CONSTANTINO WILLINGHAM [facility] [id number] [facility] 2020-09-04 00:00:00 2020-09-04 00:00:00 Outpatient CONSTANTINO WILLINGHAM [facility] [id number] [facility] 2020-08-12 09:22:00 2020-08-12 09:22:00 Outpatient NURSE, NURSE [facility] [id number] [facility] 2020-08-12 09:22:00 2020-08-12 09:22:00 Outpatient NURSE, NURSE [facility] [id number] [facility] 2020-08-06 13:56:00 2020-08-06 13:56:00 Outpatient GABI MONTANEZ [facility] [id number] [facility] 2020-08-06 13:56:00 2020-08-06 13:56:00 Outpatient GABI MONTANEZ [facility] [id number] [facility] 2020-08-06 11:00:00 2020-08-06 11:00:00 Outpatient GABI MONTANEZ [facility] [id number] [facility] 2020-08-06 11:00:00 2020-08-06 11:00:00 OFFICE/OUT PATIENT VISIT EST GABI MONTANEZ [facility] [id number] [facility] 2020-07-11 13:45:00 2020-07-11 13:45:00 Outpatient GABI MONTANEZ [facility] [id number] [facility] 2020-07-11 13:45:00 2020-07-11 13:45:00 OFFICE/OUT PATIENT VISIT EST GABI MONTANEZ [facility] [id number] [facility] 2020-05-16 17:51:00 2020-05-16 17:51:00 Outpatient Buddy Mary Arianna [facility] [id number] [facility] 2020-05-08 00:00:00 2020-05-08 00:00:00 Outpatient Buddy Mary Arianna W [id number] [facility] 2019-03-22 15:07:03 2019-03-22 23:59:00 Hospital Encounter Rohan Piotr [facility] [id number] [id number] 2019-03-22 14:59:46 2019-03-22 15:14:46 Office Visit Piotr Madrigal [facility] Surgical [facility] [id number] [id number] [id number] 2018-02-08 00:00:00 2018-02-08 00:00:00 Outpatient CONSTANTINO WILLINGHAM [facility] [id number] [facility] 2018-01-03 00:00:00 2018-01-03 00:00:00 Outpatient ACCESSHEALT H, PROVIDER [facility] [id number] [facility] 2018-01-03 00:00:00 2018-01-03 00:00:00 Outpatient ACCESS[facility] H, PROVIDER [facility] [id number] [facility] 2017-10-22 16:23:00 2017-10-22 16:23:00 Outpatient CONSTANTINO WILLINGHAM [facility] [id number] [facility] 2017-10-22 00:00:00 2017-10-22 00:00:00 Outpatient ACCESSHEALT H, PROVIDER [facility] [id number] [facility] 2017-10-22 00:00:00 2017-10-22 00:00:00 Outpatient [facility] H, PROVIDER [facility] [id number] [facility] 2017-08-10 00:00:00 2017-08-10 00:00:00 Outpatient ACCESSHEALT H, PROVIDER [facility] [id number] [facility] 2017-08-10 00:00:00 2017-08-10 00:00:00 Outpatient ACCESS[facility] H, PROVIDER [facility] [id number] [facility] 2017-08-10 00:00:00 2017-08-10 00:00:00 Outpatient CONSTANTINO WILLINGHAM [facility] [id number] [facility] 2017-02-02 16:47:00 2017-02-02 17:21:00 Emergency E NICHO RICKS [facility] [id number] [facility] 2017-01-22 00:00:00 2017-01-22 00:00:00 Outpatient CONSTANTINO WILLINGHAM [facility] [id number] [facility] 2017-01-22 00:00:00 2017-01-22 00:00:00 Outpatient HECTOR BURROWS [facility] [id number] [facility] 2017-01-21 14:44:00 2017-01-21 14:44:00 Outpatient HECTOR BURROWS [facility] [id number] [facility] 2017-01-21 00:00:00 2017-01-21 00:00:00 Outpatient ACCESSHEALT H, PROVIDER [facility] [id number] [facility] 2017-01-21 00:00:00 2017-01-21 00:00:00 Outpatient [facility] H, PROVIDER [facility] [id number] [facility] 2016-11-24 10:24:00 2016-11-24 10:24:00 Outpatient CONSTANTINO WILLINGHAM [facility] [id number] [facility] 2016-11-24 00:00:00 2016-11-24 00:00:00 Outpatient ACCESSHEALT H, PROVIDER [facility] [id number] [facility] 2016-11-24 00:00:00 2016-11-24 00:00:00 Outpatient [facility] H, [facility] [id number] [facility] 2016-01-17 00:00:00 2016-01-17 00:00:00 Outpatient CONSTANTINO WILLINGHAM [facility] [id number] [facility] 2016-01-14 13:08:00 2016-01-14 13:08:00 Outpatient CONSTANTINO WILLINGHAM [facility] [id number] [facility] 2016-01-14 00:00:00 2016-01-14 00:00:00 Outpatient ACCESSHEALT H, PROVIDER [facility] [id number] [facility] 2016-01-14 00:00:00 2016-01-14 00:00:00 Outpatient ACCESS[facility] H, PROVIDER [facility] [id number] [facility] 2015-02-27 00:00:00 2015-02-27 00:00:00 Outpatient ACCESSHEALT H, PROVIDER [facility] [id number] [facility] 2015-02-27 00:00:00 2015-02-27 00:00:00 Outpatient ACC[facility] H, [facility]ER [facility] [id number] [facility] 2014-11-27 00:00:00 2014-11-27 00:00:00 Outpatient ACCESSHEALT H, PROVIDER [facility] [id number] [facility] 2014-11-27 00:00:00 2014-11-27 00:00:00 Outpatient ACC[facility] H, PROVIDER [facility] [id number] [facility] 2014-10-02 00:00:00 2014-10-02 00:00:00 Outpatient ACCESSHEALT H, PROVIDER [facility] [id number] [facility] 2014-10-02 00:00:00 2014-10-02 00:00:00 Outpatient ACCESS[facility] H, PROVIDER [facility] [id number] [facility] 2014-07-24 00:00:00 2014-07-24 00:00:00 Outpatient ACCESS[facility] H, PROVIDER [facility] [id number] [facility] 2014-07-24 00:00:00 2014-07-24 00:00:00 Outpatient ACC[facility] H, [facility]ER [facility] [id number] [facility] 2014-05-29 00:00:00 2014-05-29 00:00:00 Outpatient ACCESSHE[facility] H, PROVIDER [facility] [id number] [facility] 2014-05-29 00:00:00 2014-05-29 00:00:00 Outpatient [facility] H, [facility] [id number] [facility] 2014-02-08 00:00:00 2014-02-08 00:00:00 Outpatient ACCESSHEALT H, PROVIDER [facility] [id number] [facility] 2014-02-08 00:00:00 2014-02-08 00:00:00 Outpatient [facility] H, [facility] [id number] [facility] 2014-01-30 00:00:00 2014-01-30 00:00:00 Outpatient ACCESSHEALT H, PROVIDER [facility] [id number] [facility] 2014-01-30 00:00:00 2014-01-30 00:00:00 Outpatient ACC[facility] H, [facility] [id number] [facility] 2013-11-28 00:00:00 2013-11-28 00:00:00 Outpatient ACCESSHEALT H, PROVIDER [facility] [id number] [facility] 2013-11-28 00:00:00 2013-11-28 00:00:00 Outpatient ACC[facility] H, [facility] [id number] [facility] 2013-10-09 00:00:00 2013-10-09 00:00:00 Outpatient ACC[facility], [facility] [id number] [facility] 2013-10-09 00:00:00 2013-10-09 00:00:00 Out[facility] [id number] [facility] 2013-09-01 00:00:00 2013-09-01 00:00:00 Outpatient [facility] [id number] [facility] 2013-09-01 00:00:00 2013-09-01 00:00:00 Outpatient [facility] [id number] [facility] 2013-06-23 00:00:00 2013-06-23 00:00:00 Outpatient [facility] [id number] [facility] 2013-06-23 00:00:00 2013-06-23 00:00:00 Outpatient [facility] [id number] [facility] 2013-05-05 00:00:00 2013-05-05 00:00:00 Outpatient [facility] [id number] [facility] 2013-05-05 00:00:2013-05-05 00:00:00 Outpatient [facility] [id number] [facility] 2013-01-31 00:00:00 2013-01-31 00:00:00 Outpatient [facility] [id number] [facility] 2013-01-31 00:00:00 2013-01-31 00:00:00 Outpatient [facility] [id number] [facility] 2012[facility]12[facility]07 00:00:00 2012-12-07 00:00:00 Outpatient ACCESSHEALT H, PROVIDER [facility] [id number] [facility] 2012-12-07 00:00:00 2012-12-07 00:00:00 Outpatient [facility]ALT [facility], [facility] [id number] [facility] 2012-10-12 00:00:00 2012-10-12 00:00:00 Outpatient ACCESSHEALT H, PROVIDER [facility] [id number] [facility] 2012-10-12 00:00:00 2012-10-12 00:00:00 Outpatient [facility]ALT [facility], [facility] [id number] [facility] 2012-08-26 00:00:00 2012-08-26 00:00:00 Outpatient ACCESSHEALT H, PROVIDER [facility] [id number] [facility] 2012-08-26 00:00:00 2012-08-26 00:00:00 Outpatient [facility], [facility] [id number] [facility] 2012-05-19 00:00:00 2012-05-19 00:00:00 Outpatient ACCESSHEALT H, PROVIDER [facility] [id number] [facility] 2012-05-19 00:00:00 2012-05-19 00:00:00 Outpatient [facility]ALT [facility], [facility] [id number] [facility] 2012-03-07 00:00:00 2012-03-07 00:00:00 Outpatient ACCESSHEALT H, PROVIDER [facility] [id number] [facility] 2012-03-07 00:00:00 2012-03-07 00:00:00 Outpatient [facility], [facility] [id number] [facility] 2011-11-26 00:00:00 2011-11-26 00:00:00 Outpatient ACCESSHEALT H, PROVIDER [facility] [id number] [facility] 2011-11-26 00:00:00 2011-11-26 00:00:00 Outpatient [facility], [facility] [id number] [facility] 2011-10-06 00:00:00 2011-10-06 00:00:00 Outpatient ACCESSHEALT H, PROVIDER [facility] [id number] [facility] 2011-10-06 00:00:00 2011-10-06 00:00:00 Outpatient [facility]ALT [facility], [facility] [id number] [facility] 2011-08-19 00:00:00 2011-08-19 00:00:00 Outpatient ACCESSHEALT H, PROVIDER [facility] [id number] [facility] 2011-08-19 00:00:00 2011-08-19 00:00:00 Outpatient [facility]ALT [facility], [facility] [id number] [facility] 2011-06-23 00:00:00 2011-06-23 00:00:00 Outpatient ACCESSHEALT H, PROVIDER [facility] [id number] [facility] 2011-06-23 00:00:00 2011-06-23 00:00:00 Outpatient [facility]ALT [facility], [facility] [id number] [facility] 2011-05-14 00:00:00 2011-05-14 00:00:00 Outpatient ACCESSHEALT H, PROVIDER [facility] [id number] [facility] 2011-05-14 00:00:00 2011-05-14 00:00:00 Outpatient ACC[facility]HEALT H, [facility] [id number] [facility] 2011-04-24 00:00:00 2011-04-24 00:00:00 Outpatient ACCESSHEALT H, PROVIDER [facility] [id number] [facility] 2011-04-24 00:00:00 2011-04-24 00:00:00 Outpatient [facility]ALT H, [facility] [id number] [facility] 2011-04-15 00:00:00 2011-04-15 00:00:00 Outpatient ACCESSHEALT H, PROVIDER [facility] [id number] [facility] 2011-04-15 00:00:00 2011-04-15 00:00:00 Outpatient [facility]ALT H, [facility] [id number] [facility] 2011-03-27 00:00:00 2011-03-27 00:00:00 Outpatient ACCESSHEALT H, PROVIDER [facility] [id number] [facility] 2011-03-27 00:00:00 2011-03-27 00:00:00 Outpatient ACC[facility]ALT H, [facility] [id number] [facility] 2010-06-12 00:00:00 2010-06-12 00:00:00 Outpatient ACCESSHEALT H, PROVIDER [facility] [id number] [facility] 2010-06-12 00:00:00 2010-06-12 00:00:00 Outpatient [facility]ALT H, [facility] [id number] [facility] 2009-07-23 00:00:00 2009-07-23 00:00:00 Outpatient ACCESSHEALT H, PROVIDER [facility] [id number] [facility] 2009-07-23 00:00:00 2009-07-23 00:00:00 Outpatient [facility]ALT H, [facility] [id number] [facility] 2009-06-18 00:00:00 2009-06-18 00:00:00 Outpatient ACCESSHEALT H, PROVIDER [facility] [id number] [facility] 2009-06-18 00:00:00 2009-06-18 00:00:00 Outpatient [facility]ALT H, [facility] [id number] [facility] Results Test Description Test Time Test Comments Results Resul t Comments Source - XR KNEE 3 V RT 2020-10-26 20:23:00 [facility] 2000 Sex: M Patient Name: ELIDA EGAN Unit No: [id number] EXAMS: CPT CODE: [id number] XR KNEE 3 V RT [id number] Exam:Right knee x-rays 3 views Location: H9 [...] Galindo (RT) (R) Transcrpt Date/Tm/Trnsp: 10/26/2020 (2022) [email or web address] Orig Print D/T: S: 10/26/2020 (2025) [facility] NAME: ELIDA EGAN [id number] PHYS: [place] [address] : 2000 AGE: 20 SEX: M LOC: .ERS PHONE #: [phone] EXAM DATE: 10/26/2020 STATUS: REG ER FAX #: [phone] RADIOLOGY NO: PAGE 1 Signed Report - XR RIBS UNI W/CXR 3+V RT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
--- NOTE | 2025-04-12 19:32 | RAD REPORT ---
EXAM: Chest Pa And Lat (2 Views) HISTORY: 24 years Male Congestion;Cough COMPARISON: No prior exams FINDINGS: LUNGS/PLEURA: The lungs are clear. No pleural effusions or pneumothorax. No pulmonary edema. CARDIAC/MEDIASTINUM: The cardiac silhouette is within normal limits. UPPER ABDOMEN: No significant abnormality. BONES: No acute abnormality. LINES/TUBES/OTHER: N/A IMPRESSION: No evidence of acute cardiopulmonary disease.
[2025-04-12 19:42] LABS: Influenza A Ag Negative; Influenza B Ag Negative; SARS-CoV-2 Antigen Rapid Res Negative (Negative)
--- NOTE | 2025-04-12 19:43 | ER ---
Nurse's Notes [facility] Name: Marlon Egan Age: 24 yrs Sex: Male : 2000 Arrival Date: 04/12/2025 Time: 18:27 Bed 11 Private MD: Diagnosis: Acute upper respiratory infection, unspecified Presentation: 04/12 18:36 Chief complaint: Patient states: fever, chills, body aches, sore throat, cough, me1 congestion, KILLIAN when bending over, chest pain on inhalation that started day before yesterday. Coronavirus screen: Vaccine status: Patient reports receiving the 2nd dose of the covid vaccine. Ebola Screen: No symptoms or risks identified at this time. Initial Sepsis Screen: Does the patient meet any 2 criteria? No. Patient's initial sepsis screen is negative. Does the patient have a suspected source of infection? No. Patient's initial sepsis screen is negative. Risk Assessment: Do you want to hurt yourself or someone else? Patient reports no desire to harm self or others. Onset of symptoms was April 10, 2025. 18:36 Method Of Arrival: [place] [facility] [place] 18:36 Acuity: STEVIE 4 me1 Historical: - Allergies: 18:38 No Known Allergies; me1 - Home Meds: 18:38 None [Active]; me1 - PMHx: 18:38 None; me1 - PSHx: 18:38 None; me1 - Immunization history:: Adult Immunizations up to date. - Infectious Disease History:: Denies. - Social history:: Smoking status: Patient denies any tobacco usage or history of. Screenin:30 [facility] ED Fall Risk Assessment (Adult) History of falling in the last 3 months, al5 including since admission No falls in past 3 months (0 pts) Confusion or Disorientation No (0 pts) Intoxicated or Sedated No (0 pts) Impaired Gait No (0 pts) Mobility Assist Device Used No (0 pt) Altered Elimination No (0 pt) Score/Fall Risk Level 0 - 2 = Low Risk Oriented to surroundings, Maintained a safe environment, Hourly rounding (assess needs \T\ fall precautionary measures) done. 19:30 Abuse screen: Denies threats or abuse. Denies injuries from another. Nutritional al5 screening: No deficits noted. Tuberculosis screening: No symptoms or risk factors identified. Assessment: 19:30 General: Appears in no apparent distress. comfortable, Behavior is calm, cooperative, al5 Reports chills for yesterday. fever for yesterday. Pain: Complains of pain in generalized body aches. Neuro: Level of Consciousness is awake, alert, obeys commands, Oriented to person, place, time, situation. Cardiovascular: Patient's skin is warm and dry. Respiratory: Airway is patent Respiratory effort is even, unlabored, Respiratory pattern is regular, symmetrical. GI: Abdomen is flat, non-distended. : No signs and/or symptoms were reported regarding the genitourinary system. EENT: No signs and/or symptoms were reported regarding the EENT system. Derm: Skin is intact, is healthy with good turgor, Skin is pink, warm \T\ dry. normal. Musculoskeletal: Circulation, motion, and sensation intact. Range of motion: intact in all extremities. 20:13 Reassessment: Patient appears in no apparent distress at this time. No changes from al5 previously documented assessment. Patient and/or family updated on plan of care and expected duration. Pain level reassessed. Patient is alert, oriented x 3, equal unlabored respirations, skin warm/dry/pink. Vital Signs: 18:36 BP 150 / 79; Pulse 57; Resp 18; Temp 98.3; Pulse Ox 99% ; Weight 79.38 kg; Height 6 ft. me1 1 in. ; Pain 5/10; 19:30 BP 156 / 103; Pulse 63; Resp 18; Temp 98.5(O); Pulse Ox 100% on R/A; al5 20:04 BP 153 / 94; Pulse 67; Resp 16; Pulse Ox 100% on R/A; al5 18:36 Body Mass Index 23.09 (79.38 kg, 185.42 cm) me1 18:36 Pain Scale: Adult sd1 ED Course: 18:30 Patient arrived in ED. mr 18:31 Ary Jennings PA-C is PHCP. sb4 18:31 Satya Haynes MD is Attending Physician. sb4 18:38 Triage completed. me1 18:38 Arm band placed on Patient placed in waiting room. me1 18:40 COVID swab sent to lab. Flu and/or RSV swab sent to lab. Strep swab sent to lab. me1 19:26 Chest Pa And Lat (2 Views) XRAY In Process Unspecified. EDMS 19:40 Chayo Odom, RN is Primary Nurse. al5 20:10 Patient has correct armband on for positive identification. Bed in low position. Call al5 light in reach. Side rails up X 1. Provided Education on: discharge follow up, medications, viral infections and treating symptoms until virus passes. 20:11 No provider procedures requiring assistance completed. Patient did not have IV access al5 during this emergency room visit. Administered Medications: 20:06 Drug: Ketorolac IM 30 mg IM once Route: IM; Site: right deltoid; al5 20:14 Follow up: Response: No adverse reaction; Medication administered at discharge. al5 Medication: 20:11 VIS not applicable for this client. al5 Outcome: 19:43 Discharge ordered by . sb4 20:14 Discharged to home ambulatory, with significant other, al5 20:14 Condition: good 20:14 Discharge instructions given to patient, significant other, Instructed on discharge instructions, follow up and referral plans. medication usage, Demonstrated understanding of instructions, follow-up care, medications, Prescriptions given X 3, 20:14 Patient left the ED. al5 Signatures: Dispatcher [employer] EDMS Jennifer Jeffries, Reg Reg mr DickAry, PA-C PA-C [email or web address] Eve Arreaga, JASON RN me1 Chayo Odom, RN RN al5 Corrections: (The following items were deleted from the chart) 20:13 19:30 General: Appears in no apparent distress. comfortable, Behavior is calm, al5 cooperative, Reports chills for fever for al5
--- NOTE | 2025-04-12 19:43 | EDPHYS ---
Physician Documentation [facility] Name: Marlon Egan Age: 24 yrs Sex: Male : 2000 Arrival Date: 04/12/2025 Time: 18:27 Bed 11 Private MD: ED Physician Satya Haynes HPI: 04/12 18:49 This 24 yrs old Black Male presents to ER via Ambulatory with complaints of Flu sb4 Symptoms. 18:49 Patient reports cough, sinus congestion, sinus pressure, fever, chills, body aches, sb4 headache for 2 days now. States that he found some old levofloxacin has been taking that for symptoms as well as ibuprofen intermittently. Denies any sick contacts. Denies any nausea, vomiting, diarrhea. Denies any medical history. Historical: - Allergies: 18:38 No Known Allergies; me1 - Home Meds: 18:38 None [Active]; me1 - PMHx: 18:38 None; me1 - PSHx: 18:38 None; me1 - Immunization history:: Adult Immunizations up to date. - Infectious Disease History:: Denies. - Social history:: Smoking status: Patient denies any tobacco usage or history of. ROS: 18:49 Abdomen/GI: Negative for abdominal pain, nausea, vomiting, diarrhea, and constipation, sb4 18:49 Constitutional: Positive for body aches, chills, fatigue, fever, malaise, 18:49 ENT: Positive for sinus congestion, sore throat, 18:49 Respiratory: Positive for cough, 18:49 All other systems are negative, Exam: 18:49 Head/Face: Normocephalic, atraumatic. Eyes: Extra-ocular motions intact. Periorbital sb4 areas with no swelling, redness, or edema. ENT: Mucous membranes moist. Cardiovascular: Regular rate and rhythm with a normal S1 and S2. Respiratory: No increased work of breathing, no retractions or nasal flaring. Abdomen/GI: Soft, non-tender, no distension. Skin: Warm, dry with normal turgor. Normal color with no rashes, no lesions, and no evidence of cellulitis. 18:49 Constitutional: The patient appears in no acute distress, alert, awake, 18:49 Head/face: Sinus tenderness, is not appreciated, 18:49 ENT: TM's: are normal, no acute changes, Posterior pharynx: is normal, airway is patent, no erythema, no exudate, Vital Signs: 18:36 BP 150 / 79; Pulse 57; Resp 18; Temp 98.3; Pulse Ox 99% ; Weight 79.38 kg; Height 6 ft. me1 1 in. ; Pain 5/10; 19:30 BP 156 / 103; Pulse 63; Resp 18; Temp 98.5(O); Pulse Ox 100% on R/A; al5 20:04 BP 153 / 94; Pulse 67; Resp 16; Pulse Ox 100% on R/A; al5 18:36 Body Mass Index 23.09 (79.38 kg, 185.42 cm) me1 18:36 Pain Scale: Adult me1 MDM: 18:32 Medical Screening Exam initiated sb4 18:51 Differential diagnosis: viral Infection, bacterial infection, URI, bronchitis. sb4 19:24 Independent interpretation of the following test(s) in the Emergency Department X-Ray: sb4 My interpretation is My interpretation of the chest x-ray images is no acute consolidation or evidence of pneumonia. 19:43 Data reviewed: vital signs, nurses notes, lab test result(s), radiologic studies, and sb4 as a result, I will discharge patient. Counseling: I had a detailed discussion with the patient and/or guardian regarding the historical points, exam findings, and any diagnostic results supporting the discharge/admit diagnosis, the presence of at least one elevated blood pressure reading (>120/80) during this emergency department visit, lab results, radiology results, the need for outpatient follow up, for definitive care, to return to the emergency department if symptoms worsen or persist or if there are any questions or concerns that arise at home. 04/12 18:39 Order name: COVID-19 Ag + Flu A+B Ag; Complete Time: 19:42 sb4 04/12 18:39 Order name: Group A Streptococcus Rapid; Complete Time: 19:31 sb4 04/12 19:32 Order name: Throat Culture EDMS 04/12 18:39 Order name: Chest Pa And Lat (2 Views) XRAY; Complete Time: 19:33 sb4 Administered Medications: 20:06 Drug: Ketorolac IM 30 mg IM once Route: IM; Site: right deltoid; al5 20:14 Follow up: Response: No adverse reaction; Medication administered at discharge. al5 Disposition: 04/13 09:13 Co-signature as Attending Physician, Satya Haynes MD I agree with the assessment and gamaliel plan of care. Disposition Summary: 04/12/25 19:43 Discharge Ordered Notes: Location: Home sb4 Problem: new sb4 Symptoms: have improved sb4 Condition: Stable sb4 Diagnosis - Acute upper respiratory infection, unspecified sb4 Followup: sb4 - With: Emergency Department - When: As needed - Reason: Trouble breathing, Worsening of condition Discharge Instructions: - Discharge Summary Sheet sb4 - Upper Respiratory Infection, Adult, [id number] sb4 Forms: - Work release form sb4 - Patient Portal Instructions sb4 - Leadership Thank You Letter sb4 Prescriptions: - oxymetazoline 0.05 % Nasal spray, non-aerosol - spray 2 spray INTRANASAL route every 12 hours for 3 days as needed for nasal sb4 congestion; 1 Applicator; Refills: 0, Product Selection Permitted - Juliette-D 12 Hour 60-120 mg Oral Tablet Sustained Release 12 hr - take 1 tablet ORAL route every 12 hours As needed; 20 tablet; Refills: 0, sb4 Product Selection Permitted - Prednisone 20 mg Oral Tablet - take 1 tablet ORAL route every 12 hours for 5 days; 10 tablet; Refills: 0, sb4 Product Selection Permitted Signatures: Dispatcher [employer] Satya Green MD MD cha Brown, Sophia, PA-C PA-C sb4 Eve Arreaga, RN RN me1 Chayo Odom RN RN al5
[2025-04-12] MEDS ORDERED: KETOROLAC 30 MG/ML INJ ONE (20:00)
[2025-04-12 21:12] VITALS: TEMP 98.5; O2SAT 100
[2025-04-12 21:13] VITALS: BP 153/94
== END 2025-04-12 20:14 | disposition home or self-care (01) ==
LOC: ER 18:27
DX: J06.9 Acute upper respiratory infection, unspecified (principal); Z11.52 Encounter for screening for COVID-19
CPT/HCPCS: 36415; 71046; 87070; 87428; 96372; 99284